=== PATIENT | female | born 1965 | race Hispanic/Latino ===

== ENCOUNTER 2017-07-04 23:30 | Emergency (ER) | payer OTHER, SELFPAY ==
[2017-07-05] MEDS ORDERED: Acetaminophen 500 MG TAB ONE (00:19)
[2017-07-05] MEDS ORDERED: Ondansetron ODT 4 MG TAB ONE (02:23)
[2017-07-05] MEDS ORDERED: HYDROcodone/Acetaminophen 10/325 mg Tablet ONE (02:23)
== END 2017-07-05 02:25 | disposition home or self-care (01) ==
LOC: ERS 23:30
DX: B34.9 Viral infection, unspecified (principal)
CPT/HCPCS: 99283; Q0162

== ENCOUNTER 2018-01-02 13:39 | Emergency (ER) | payer SELFPAY ==
[~2018-01-02 13:39] MED LIST: ISOVUE-370 76%-LOCM 1 ML ONE
[2018-01-02] MEDS ORDERED: Esmolol 100 MG/10 ML VIAL IVP SCH (14:15)
[2018-01-02 14:18] LABS: #Basophils 0.1 thou/uL (0.0-0.2); #Eosinphils 0.1 thou/uL (0.0-0.7); #Lymphocytes 2.7 thou/uL (1.20-3.40); #Monocytes 0.6 thou/uL (0.11-0.59); %Basophils 0.8 % (0.0-1.0); %Eosinophils 0.8 % (0.0-10.0); %Lymphocytes 31.9 % (21.0-51.0); %Neutrophils 59.4 % (42.0-75.0); Hemoglobin 14.3 g/dL (12.0-16.0); Mean Corpuscular Hemoglobin 28.6 pg (27.0-31.0); Mean Corpuscular Volume 84.2 fl (81.0-99.0); Mean Platelet Volume 6.8 fL (7.4-10.4); Platelet Count 305 thou/uL (130-400); RBC Distribution Width 12.3 % (11.5-14.5); Red Blood Cell (RBC) Count 4.99 mill/uL (4.20-5.40); White Blood Cell (WBC) Count 8.5 thou/uL (4.8-10.8)
[2018-01-02 14:28] LABS: PTT 26.6 SEC (22.9-36.1)
[2018-01-02] MEDS ORDERED: Esmolol 2,500 MG/250 ML 250 ML IVPB SCH (14:30)
[2018-01-02 14:42] LABS: ALT (SGPT) 21 U/L (8-55); AST (SGOT) 15 U/L (5-34); Albumin 4.5 g/dL (3.5-5.0); Alkaline Phosphatase 118 U/L (40-150); Anion Gap 11 mmol/L (10-20); BUN (Urea Nitrogen) 17 mg/dL (9.8-20.1); Bilirubin, Total 0.5 mg/dL (0.2-1.2); CK (CPK) 43 U/L (29-168); Calc. Creatinine Clearance 0 mL/min (70-130); Carbon Dioxide 28 mmol/L (22-29); Chloride 104 mmol/L (98-107); Estimated GFR-MDRD 79; Globulin 3.5 g/dL (2.4-3.5); Glucose 142 mg/dL (70-105); Lipase 32 U/L (8-78); Potassium 3.5 mmol/L (3.5-5.1); Sodium 139 mmol/L (136-145)
[2018-01-02 14:45] LABS: CKMB 0.7 ng/mL (0-6.6); Troponin I Less than 0.010 ng/mL (< 0.028)
[2018-01-02] MEDS ORDERED: Metoclopramide HCl 10 MG/2 ML VIAL ONE (15:42)
[2018-01-02] MEDS ORDERED: diphenhydrAMINE 50 MG/ML VIAL ONE (15:42)
[2018-01-02] MEDS ORDERED: Acetaminophen 500 MG TAB ONE (15:42)
--- NOTE | 2018-01-02 15:56 | RAD ---
RADIOGRAPH CHEST 1 VIEW: HISTORY: 52-year-old female with chest pain for two days. FINDINGS: There is no air space density, pulmonary edema, or pneumothorax. The lateral costophrenic angles are sharp. IMPRESSION: No acute pulmonary findings. luis enrique POS: SHIMA
--- NOTE | 2018-01-02 16:18 | CT ---
CT ANGIOGRAM CHEST WITH CONTRAST CT ANGIOGRAM ABDOMEN WITH CONTRAST: History: Chest pain. Comparison: Radiograph same day. FINDINGS: CT angiogram of the chest and abdomen performed after the intravenous administration of contrast. 3D renderings provided. The aorta is without aneurysmal dilatation or dissection. No intralobar hematoma. Visualized portions of the pulmonary arteries are without filling defect. No dilatation. Heart size i s normal. No pericardial effusion. No adenopathy. Celiac trunk is patent. Superior mesentery artery is patent. Both renal arteries are patent. Inferior mesenteric artery is patent. No free fluid in the abdomen. Small fat containing umbilical hernia. No dilated loops of large or small bowel in the upper abdomen. The liver, kidneys, spleen, and pancre as are all unremarkable. Prior cholecystectomy. No spine compression fracture. No displace rib fracture. Lungs are clear. No focal airspace consolidation. IMPRESSION: 1. No aortic dissection, aneurysm dilatation, nor intramural hematoma. No findings to explain patient 's chest pain. 2. 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 3. Small fat containing umbilical hernia. POS: LEEANN
--- NOTE | 2018-01-02 19:36 | CON ---
DATE OF CONSULTATION: 01/02/2018 PRIMARY CARE PHYSICIAN: Clover. REQUESTING PHYSICIAN: Dr. Desai and Dr. Ramirez in the emergency department. REASON FOR CONSULTATION: Elevated blood pressure and chest pain. HISTORY OF PRESENT ILLNESS: Ms. Choe is a 52-year-old female with history of hypert ension and history of medical nonadherence, who presented to the emergency department today for a 48- hour history of intermittent chest pain. She describes it as sharp and stabbing, worse with deep ins piration and movements. She noted that they continued, so she presented to emergency department for evaluation. On arrival, blood pressure was 211/107. Chest pain was again still intermittent. She got 40 mg of i ntravenous esmolol with resolution of her elevated pressure and so the esmolol drip that was ordered was never started. We were subsequently called for admit. She denies any diaphoresis. No nausea, vomiting, diarrhea, constipation. She has had no fevers, chi lls, cough, or sputum production. There has been no GI bleeding. She currently complains only of a headache. Blood pressure has been in the teens to 130s. We discussed options of coming to the hospital for observation overnight for elevated pressure, and I remember they have done this exact same thing back in 06/2016, at which time, she had a negative wor kup, negative stress test, and negative cardiac biomarkers. PAST MEDICAL HISTORY: 1. Hypertension. 2. Medical noncompliance. PAST SURGICAL HISTORY: 1. Cholecystectomy. 2. Bilateral tubal ligation. HOME MEDICATIONS: Lisinopril 2.5 mg p.o. daily. ALLERGIES: NKDA. FAMILY HISTORY: Negative for clotting or bleeding disorder. No immune dysfunction. Some diabetes a nd high blood pressure in other members. SOCIAL HISTORY: Negative for habits x3. REVIEW OF SYSTEMS: A 10-point review of systems was performed and negative for all systems except as stated per HPI. PHYSICAL EXAMINATION: VITAL SIGNS: Temperature is 98.1, pulse 102, blood pressure 211/101, respiratory rate 20, satting 98 % on room air. When I saw her, temperature is 98.4, pulse 71, blood pressure 116/52, respiratory rat e 18, satting 95% on room air. GENERAL: She is awake. She is alert. She is oriented x3. She is a middle-aged fema le, who looks like she does not feel good. She is [place]o speaking only, translated through her daug hter. HEENT: Normocephalic, atraumatic. Pupils equal, round, and reactive to light bilaterally. Mucous m embranes are moist. No visible lesion. No thrush. NECK: Supple without lymphadenopathy, JVD, or thyromegaly. She has normal carotid upstroke. She blood s no bruits. LUNGS: Clear to auscultation bilaterally. There are no wheezes, no rales, no rhonchi. She has good air movement. Symmetric chest excursion. CARDIOVASCULAR: She has a normal S1 and S2. She has normal cardiac with a rate just above 60. She has no audible murmurs. She has no S3 or S4. ABDOMEN: Soft. It is nontender and nondistended. She has good bowel sounds in all 4 quadrants. Sh e has no guarding, no rigidity. EXTREMITIES: No cyanosis, no clubbing. She has got bounding 2+ peripheral pulses in the dorsalis pe dis, posterior tibial, and radial arteries bilaterally. She has no edema. SKIN: Warm, moist, and well perfused. She has no rashes, no lesions. Capillary refill is less than 2 seconds. MUSCULOSKELETAL: Lower extremities are normal to inspection. There is no inflammation. No palpable effusions. NEUROLOGIC: Cranial nerves II-XII are grossly intact. She has normal speech pattern. She has no fo jose a deficits and 5/5 strength in all 4 extremities. LABORATORY DATA: Sodium 139, potassium 4.5, chloride 104, bicarb 28, BUN 63, creatinine 0.76, glucos e of 142, and calcium of 11. Liver function is completely within normal limits. CBC showed a white count of 8.5, hemoglobin is 14.3, hematocrit of 47, and platelet count is 305,000. BNP is normal at 52.8. CK-MB is negative at 0.7. Troponin I is negative at less than 0.010. RADIOGRAPHIC STUDIES: Chest x-ray showed no acute cardiopulmonary disease. CT scan dissection rohit col was negative. She had her last stress test on 06/12/2016, which showed an EF of 78%. She had no reversible ischemia and no scarring. ASSESSMENT AND PLAN: 1. Essential hypertension. The patient is only on 2.5 mg of lisinopril a day, which is largely inef fective. We will transition her over to amlodipine and start her at 5 mg daily. Her blood pressure is currently normal at 116/52. She has had 2 days of intermittent, sharp, and atypical chest pain. She had a completely negative stress test 18 months ago. She had no EKG changes. At this point, I aurelio ulloa let her go home from the emergency department. She has promised to call her primary doctor in t he morning to see him later this week for followup of her blood pressure. I have given her prescript ion for amlodipine 5 mg p.o. daily to start first thing in the morning and I recommended she get a bl ood pressure cuff. 2. Medical nonadherence. Through her daughter, I did addiction treatment counselor regarding need to adhere to her medica tion regimen. Elevated pressures could lead to a catastrophic event such as intracranial bleeding, e tc. 3. Atypical chest pain. I do not think this represents cardiac chest pain.
--- NOTE | 2018-01-08 20:24 | EKG ---
Test Reason : CP Blood Pressure : / mmHG Vent. Rate : 104 BPM Atrial Rate : 104 BPM P-R Int : 204 ms QRS Dur : 066 ms QT Int : 344 ms P-R-T Axes : 041 048 020 degrees QTc Int : 452 ms Sinus tachycardia Otherwise normal ECG Confirmed by LUIS CISNEROS ([id number]), design editor PHUONG BONDS ([id number]) on 01/08/2018 8:23:33 PM Referred By: Confirmed By:LUIS CISNEROS
== END 2018-01-02 18:22 | disposition home or self-care (01) ==
LOC: ERS 13:39
DX: I16.0 Hypertensive urgency (principal); R07.2 Precordial pain; I10 Essential (primary) hypertension
CPT/HCPCS: 71045; 71275; 80053; 82553; 83690; 83880; 84484; 85025; 85610; 85730; 93005; 94760; 96365; 96366; 96375; J1200; J2765

== ENCOUNTER 2023-04-29 18:59 | Inpatient (IN) | payer SELFPAY ==
[~2023-04-29 18:59] MED LIST changes: -ISOVUE-370 76%-LOCM 1 ML ONE; +Iopamidol-370 76% 500 ML MDV (1 ML CHARGE) ONE
[2023-04-29] MEDS ORDERED: Ondansetron PF 4 MG/2 ML Vial ONE (19:24)
[2023-04-29] MEDS ORDERED: Aspirin Chewable 81 MG TAB ONE (19:24)
[2023-04-29] MEDS ORDERED: Morphine 4 MG/ML VIAL ONE (19:24)
[2023-04-29 19:32] LABS: #Basophils 0.1 thou/uL (0.0-0.2); #Monocytes 0.8 thou/uL (0.11-0.59); #Neutrophils 5.4 thou/uL (1.40-6.50); %Basophils 0.5 % (0.0-1.0); %Eosinophils 0.2 % (0.0-10.0); %Lymphocytes 40.5 % (21.0-51.0); %Monocytes 7.1 % (0.0-10.0); %Neutrophils 51.4 % (42.0-75.0); Hematocrit 39.1 % (36.0-47.0); Hemoglobin 13.4 g/dL (12.0-16.0); Mean Corpuscular HGB CONC 34.3 g/dL (32.0-36.0); Mean Corpuscular Hemoglobin 29.1 pg (27.0-31.0); Mean Platelet Volume 9.6 fL (7.4-10.4); Platelet Count 350 10x3/uL (130-400); RBC Distribution Width 12.6 % (11.5-14.5); White Blood Cell (WBC) Count 10.5 10x3/uL (4.8-10.8)
[2023-04-29 19:54] LABS: ALT (SGPT) 18 U/L (8-55); AST (SGOT) 18 U/L (5-34); Albumin 4.7 g/dL (3.5-5.0); Alkaline Phosphatase 95 U/L (40-110); Anion Gap 16 mmol/L (10-20); BUN (Urea Nitrogen) 19 mg/dL (9.8-20.1); Bilirubin, Total 0.4 mg/dL (0.2-1.2); Calc. Creatinine Clearance 0 mL/min (70-130); Calcium 10.9 mg/dL (7.8-10.44); Carbon Dioxide 20 mmol/L (22-29); Chloride 102 mmol/L (98-107); Estimated GFR 68; Globulin 3.4 g/dL (2.4-3.5); Glucose 133 mg/dL (70-105); Potassium 2.8 mmol/L (3.5-5.1); Protein, Total 8.1 g/dL (6.0-8.3); Sodium 135 mmol/L (136-145)
[2023-04-29] MEDS ORDERED: Nitroglycerin 2% Ointment 1 INCH/1 GM Packet ONE (21:36)
[2023-04-29] MEDS ORDERED: Nitroglycerin 0.4 MG TAB (25 Tab Bottle) SL PRN (22:07)
[2023-04-29] MEDS ORDERED: Ondansetron ODT 4 MG TAB PO PRN (22:07)
[2023-04-29] MEDS ORDERED: Morphine 4 MG/ML VIAL SLOW IVP PRN (22:07)
[2023-04-29] MEDS ORDERED: Potassium Chloride 20 MEQ TAB ONE (22:22)
[2023-04-29] MEDS ORDERED: LORazepam 2 MG/ML SYR.(CARPUJECT) ONE (22:22)
[2023-04-29] MEDS ORDERED: Lorazepam 2 MG/ML VIAL SLOW IVP SCH ×2 (23:15→23:45)
[2023-04-29 23:21] LABS: Troponin I 0.014 ng/mL (< 0.028)
[2023-04-29] MEDS ORDERED: Lidocaine 2% Viscous Solution 10 ML, Aluminum & Magnesium Hydroxide 30 ML SSW SCH (23:30)
[2023-04-29] MEDS ORDERED: Mag-Al 1200 mg/1200 mg/30 ML UDCUP PO SCH (23:45)
[2023-04-29 23:54] LABS: Amphetamine Not Detected (NotDetected); Barbiturates Screen Not Detected (NotDetected); Benzodiazepine Screen Not Detected (NotDetected); Cocaine Metabolite Screen Not Detected (NotDetected); Methadone Not Detected (NotDetected); Methamphetamine Not Detected (NotDetected); Opiate Screen Detected (NotDetected); Oxycodone Screen Not Detected (NotDetected); Phencyclidine (PCP) Not Detected (NotDetected); THC/Cannabinoid Screen Not Detected (NotDetected); Tricyclic Screen Not Detected (NotDetected)
[2023-04-30 00:50] LABS: Bacteria/HPF None Seen HPF (None Seen); Bilirubin Negative (Negative); Blood, Urine Negative (Negative); CAUTI Indications for Culture Pelvic or flank pain; Clarity Clear (Clear); Glucose, Urine (Dipstick) Normal (Negative); Ketone, Urine Negative (Negative); Leukocyte 25 Leu/uL (Negative); Nitrite Negative (Negative); Protein, Urine (Dipstick) Negative (Neg-Trace); RBC/HPF 0-3 HPF (0-3); Specific Gravity, Urine 1.013 (1.002-1.036); Squamous Epithelial 0-3 HPF (0-3); Urobilinogen Normal mg/dL (Less than 2); WBC/HPF 0-3 HPF (0-3)
[2023-04-30 00:52] LABS: Urine Culture Reflex No No
[2023-04-30] MEDS ORDERED: Mag-Al 1200 mg/1200 mg/30 ML UDCUP PO SCH (01:30)
[2023-04-30] MEDS: Ondansetron PF 4 MG/2 ML Vial IVP PRN ×2 (01:57→19:10)
[2023-04-30 04:31] LABS: #Monocytes 0.5 thou/uL (0.11-0.59); #Neutrophils 3.3 thou/uL (1.40-6.50); %Basophils 0.3 % (0.0-1.0); %Eosinophils 0.2 % (0.0-10.0); %Lymphocytes 34.2 % (21.0-51.0); %Monocytes 8.1 % (0.0-10.0); %Neutrophils 56.7 % (42.0-75.0); Hematocrit 34.4 % (36.0-47.0); Hemoglobin 11.4 g/dL (12.0-16.0); Mean Corpuscular HGB CONC 33.1 g/dL (32.0-36.0); Mean Corpuscular Hemoglobin 28.8 pg (27.0-31.0); Mean Corpuscular Volume 86.9 fl (78.0-98.0); Mean Platelet Volume 9.8 fL (7.4-10.4); Platelet Count 273 10x3/uL (130-400); RBC Distribution Width 12.7 % (11.5-14.5); Red Blood Cell (RBC) Count 3.96 mill/uL (4.20-5.40); White Blood Cell (WBC) Count 5.9 10x3/uL (4.8-10.8)
[2023-04-30 05:04] LABS: Troponin I Less than 0.010 ng/mL (< 0.028)
[2023-04-30 05:25] LABS: Anion Gap 11 mmol/L (10-20); BUN (Urea Nitrogen) 12 mg/dL (9.8-20.1); Calc. Creatinine Clearance 98 mL/min (70-130); Carbon Dioxide 22 mmol/L (22-29); Cardiac Risk 6.5 (Less than 4.5); Chloride 111 mmol/L (98-107); Cholesterol 209 mg/dl (< 200 Desired); Estimated GFR 95; Glucose 101 mg/dL (70-105); HDL Cholesterol 32 mg/dL (>60 Neg Risk); LDL Cholesterol, Calculated 154 mg/dL; Potassium 4.4 mmol/L (3.5-5.1); Sodium 140 mmol/L (136-145); Triglycerides 114 mg/dL (Less than 150)
[2023-04-30 05:40] LABS: Magnesium 2.2 mg/dL (1.6-2.6)
[2023-04-30] MEDS: Aspirin Chewable 81 MG TAB PO SCH (09:56)
[2023-04-30] MEDS: Acetaminophen 325 MG TAB PO PRN (09:56)
[2023-04-30] MEDS: Sodium Chloride 0.9% 1,000 ML IV SCH (15:20)
[2023-04-30] MEDS: Atorvastatin Calcium 40 MG TAB PO SCH (21:17)
[2023-05-01 05:08] LABS: #Eosinphils 0.1 thou/uL (0.0-0.7); #Monocytes 0.4 thou/uL (0.11-0.59); #Neutrophils 2.8 thou/uL (1.40-6.50); %Basophils 0.5 % (0.0-1.0); %Eosinophils 1.3 % (0.0-10.0); %Lymphocytes 39.1 % (21.0-51.0); %Monocytes 7.7 % (0.0-10.0); %Neutrophils 51.4 % (42.0-75.0); Hematocrit 36.4 % (36.0-47.0); Hemoglobin 11.7 g/dL (12.0-16.0); Mean Corpuscular HGB CONC 32.1 g/dL (32.0-36.0); Mean Platelet Volume 9.8 fL (7.4-10.4); Platelet Count 243 10x3/uL (130-400); RBC Distribution Width 12.9 % (11.5-14.5); Red Blood Cell (RBC) Count 4.03 mill/uL (4.20-5.40); White Blood Cell (WBC) Count 5.5 10x3/uL (4.8-10.8)
[2023-05-01] MEDS: Sodium Chloride 0.9% 1,000 ML IV SCH (05:41)
[2023-05-01 05:50] LABS: Mean Corpuscular Volume 90.3 fl (78.0-98.0)
[2023-05-01 05:56] LABS: Anion Gap 10 mmol/L (10-20); BUN (Urea Nitrogen) 11 mg/dL (9.8-20.1); Calc. Creatinine Clearance 97 mL/min (70-130); Calcium 10.1 mg/dL (7.8-10.44); Carbon Dioxide 23 mmol/L (22-29); Chloride 110 mmol/L (98-107); Estimated GFR 93; Glucose 91 mg/dL (70-105); Potassium 4.2 mmol/L (3.5-5.1); Sodium 139 mmol/L (136-145)
[2023-05-01] MEDS ORDERED: ADENOSINE 60 MG/20 ML SDV ONE (09:38)
[2023-05-01] MEDS: Lisinopril 10 MG TAB PO SCH (12:03)
[2023-05-01] MEDS: Aspirin Chewable 81 MG TAB PO SCH (12:03)
[2023-05-01] MEDS ORDERED: Amlodipine 5 MG TAB PO SCH (14:45)
[2023-05-01] MEDS: Acetaminophen 325 MG TAB PO PRN (16:02)
[2023-05-01] MEDS ORDERED: Communication Order-Pharmacy FS SCH (17:00)
[2023-05-01] MEDS: Atorvastatin Calcium 40 MG TAB PO SCH (21:02)
[2023-05-02 04:23] LABS: #Eosinphils 0.1 thou/uL (0.0-0.7); #Monocytes 0.5 thou/uL (0.11-0.59); #Neutrophils 3.3 thou/uL (1.40-6.50); %Basophils 0.5 % (0.0-1.0); %Eosinophils 1.4 % (0.0-10.0); %Monocytes 7.6 % (0.0-10.0); %Neutrophils 56.2 % (42.0-75.0); Hematocrit 38.1 % (36.0-47.0); Hemoglobin 12.4 g/dL (12.0-16.0); Mean Corpuscular HGB CONC 32.5 g/dL (32.0-36.0); Mean Platelet Volume 9.5 fL (7.4-10.4); Platelet Count 246 10x3/uL (130-400); RBC Distribution Width 12.7 % (11.5-14.5); Red Blood Cell (RBC) Count 4.28 mill/uL (4.20-5.40); White Blood Cell (WBC) Count 5.9 10x3/uL (4.8-10.8)
[2023-05-02 04:48] LABS: Anion Gap 9 mmol/L (10-20); BUN (Urea Nitrogen) 9 mg/dL (9.8-20.1); Calc. Creatinine Clearance 98 mL/min (70-130); Calcium 10.2 mg/dL (7.8-10.44); Carbon Dioxide 27 mmol/L (22-29); Chloride 109 mmol/L (98-107); Estimated GFR 95; Glucose 103 mg/dL (70-105); Sodium 141 mmol/L (136-145)
[2023-05-02] MEDS ORDERED: Amlodipine 5 MG TAB PO SCH (09:00)
[2023-05-02] MEDS: Lisinopril 10 MG TAB PO SCH (10:20)
[2023-05-02] MEDS: Amlodipine 5 MG TAB PO SCH (10:20)
[2023-05-02] MEDS: Aspirin Chewable 81 MG TAB PO SCH (10:20)
[2023-05-02] MEDS: Ondansetron PF 4 MG/2 ML Vial IVP PRN (14:45)
[2023-05-02] MEDS: Atorvastatin Calcium 40 MG TAB PO SCH (20:06)
[2023-05-03 05:02] LABS: #Eosinphils 0.1 thou/uL (0.0-0.7); #Monocytes 0.6 thou/uL (0.11-0.59); #Neutrophils 5.1 thou/uL (1.40-6.50); %Basophils 0.4 % (0.0-1.0); %Eosinophils 0.8 % (0.0-10.0); %Lymphocytes 23.5 % (21.0-51.0); %Monocytes 7.6 % (0.0-10.0); %Neutrophils 67.6 % (42.0-75.0); Hematocrit 39.2 % (36.0-47.0); Hemoglobin 12.9 g/dL (12.0-16.0); Mean Corpuscular HGB CONC 32.9 g/dL (32.0-36.0); Mean Corpuscular Hemoglobin 29.3 pg (27.0-31.0); Mean Corpuscular Volume 88.9 fl (78.0-98.0); Mean Platelet Volume 9.6 fL (7.4-10.4); Platelet Count 261 10x3/uL (130-400); RBC Distribution Width 12.5 % (11.5-14.5); Red Blood Cell (RBC) Count 4.41 mill/uL (4.20-5.40); White Blood Cell (WBC) Count 7.5 10x3/uL (4.8-10.8)
[2023-05-03 05:23] LABS: Anion Gap 11 mmol/L (10-20); BUN (Urea Nitrogen) 16 mg/dL (9.8-20.1); Calc. Creatinine Clearance 85 mL/min (70-130); Calcium 10.4 mg/dL (7.8-10.44); Carbon Dioxide 26 mmol/L (22-29); Chloride 105 mmol/L (98-107); Estimated GFR 80; Glucose 101 mg/dL (70-105); Potassium 4.2 mmol/L (3.5-5.1); Sodium 138 mmol/L (136-145)
[2023-05-03] MEDS ORDERED: Sodium Chloride 0.9% 1,000 ML IV SCH ×2 (06:00→09:57)
[2023-05-03] MEDS ORDERED: Lidocaine 1% (PF) 30 ML VIAL ONE (08:27)
[2023-05-03] MEDS ORDERED: Heparin 10,000 UNITS/ 10 ML VIAL ONE (08:27)
[2023-05-03] MEDS ORDERED: fentaNYL 50 mcg/mL 1 mL Vial ONE (08:43)
[2023-05-03] MEDS ORDERED: Midazolam HCl 2 mg/2 ml Vial ONE (08:43)
[2023-05-03] MEDS ORDERED: Protamine Sulfate 50 MG/5 ML VIAL ONE (09:39)
[2023-05-03] MEDS ORDERED: Acetaminophen/Codeine 30-300mg Tablet PO PRN ×2 (09:56)
[2023-05-03] MEDS ORDERED: Nitroglycerin 0.4 MG TAB (25 Tab Bottle) SL PRN (09:56)
[2023-05-03] MEDS ORDERED: Sodium Chloride 0.9% 200 ML IV PRN (09:56)
[2023-05-03] MEDS ORDERED: Iopamidol 370 76% 100 ML VIAL ONE (10:19)
[2023-05-03] MEDS ORDERED: ALPRAZolam 0.25 MG TAB PO PRN (10:49)
[2023-05-03] MEDS ORDERED: Diazepam 5 MG TAB PO PRN (10:51)
[2023-05-03] MEDS ORDERED: Communication Order-Pharmacy FS PRN (10:51)
[2023-05-03] MEDS: Amlodipine 5 MG TAB PO SCH (11:28)
[2023-05-03] MEDS: Acetaminophen 325 MG TAB PO PRN (11:29)
[2023-05-03] MEDS: Aspirin Chewable 81 MG TAB PO SCH (11:30)
[2023-05-03] MEDS: Lisinopril 10 MG TAB PO SCH (11:30)
[2023-05-03 12:18] LABS: Hemoglobin A1c 5.6 % (4.0-6.0)
[2023-05-03] MEDS: Atorvastatin Calcium 40 MG TAB PO SCH (22:10)
[2023-05-04] MEDS: Lisinopril 10 MG TAB PO SCH (04:54)
[2023-05-04] MEDS ORDERED: Dexamethasone 4 mg/ml Vial ONE (06:18)
[2023-05-04] MEDS ORDERED: Albumin 5% 500 ML ONE (06:19)
[2023-05-04] MEDS ORDERED: Bupivacaine HCl 0.5%/Epinephrine 1:200,000/PF 30 ml Vial ONE (06:19)
[2023-05-04] MEDS ORDERED: Lidocaine 1% MPF 2 ML VIAL ONE (06:36)
[2023-05-04] MEDS ORDERED: niCARdipine 25 MG/10 ML SDV ONE (06:54)
[2023-05-04] MEDS ORDERED: Rocuronium Bromide 50 MG/5 ML VIAL ONE (06:54)
[2023-05-04] MEDS ORDERED: Insulin Regular 300 UNITS/3 ML VIAL ONE (06:54)
[2023-05-04] MEDS ORDERED: Fentanyl 250 MCG/5 ML VIAL ONE (06:54)
[2023-05-04] MEDS ORDERED: Aminocaproic Acid 5 GM/20 ML VIAL ONE ×2 (06:54→07:44)
[2023-05-04] MEDS ORDERED: Vasopressin 20 UNITS/ML VIAL ONE (06:54)
[2023-05-04] MEDS ORDERED: Norepinephrine 4 MG/4 ML VIAL ONE (06:54)
[2023-05-04] MEDS ORDERED: Midazolam HCl 2 mg/2 ml Vial ONE (06:54)
[2023-05-04] MEDS ORDERED: Heparin 10,000 UNITS/1 ML VIAL 30,000 UNITS in Sodium Chloride 0.9% 1,000 ML FS SCH (07:00)
[2023-05-04] MEDS ORDERED: CEFAZOLIN 2 GM in Sodium Chloride 0.9% 100 ML IVPB SCH (07:30)
[2023-05-04] MEDS ORDERED: Vancomycin 1 GM VIAL ONE (07:44)
[2023-05-04] MEDS ORDERED: Cardioplegic Soln 1,000 ML BAG ONE (07:44)
[2023-05-04] MEDS ORDERED: Heparin 5,000 UNITS/ML VIAL ONE (07:44)
[2023-05-04] MEDS ORDERED: PROPOFOL 200 MG/20 ML VIAL ONE (07:44)
[2023-05-04] MEDS ORDERED: PHENYLEPHRINE-NS 100 MCG/ML 10 ML SYRINGE ONE (07:44)
[2023-05-04] MEDS ORDERED: Esmolol 100 MG/10 ML VIAL ONE (07:44)
[2023-05-04] MEDS ORDERED: Rocuronium Bromide 10 MG/ML (10ML VIAL) ONE (07:44)
[2023-05-04] MEDS ORDERED: Papaverine 60 MG/2 ML VIAL ONE (07:44)
[2023-05-04] MEDS ORDERED: Sodium Bicarb 50 MEQ/50 ML VIAL ONE (07:44)
[2023-05-04] MEDS ORDERED: Heparin 30,000 units/30 ml VIAL ONE (07:44)
[2023-05-04] MEDS ORDERED: Calcium Chloride 1 GM/10 ML Abboject SYRINGE ONE (07:44)
[2023-05-04] MEDS ORDERED: Mannitol 12.5 GM/50 ML ONE (07:44)
[2023-05-04] MEDS ORDERED: Potassium Chloride 60 MEQ/30 ML VIAL ONE (07:44)
[2023-05-04] MEDS ORDERED: Lidocaine 2% PF 100 mg/5 ml Syringe ONE (07:44)
[2023-05-04] MEDS ORDERED: Lidocaine 1% PF 5 ML VIAL ONE (07:44)
[2023-05-04] MEDS ORDERED: ePHEDrine Sulfate 50 MG/10 ML VIAL ONE (07:44)
[2023-05-04] MEDS ORDERED: Magnesium 5 GM/10 ML VIAL ONE (07:44)
[2023-05-04] MEDS ORDERED: Thrombin 5000 UNITS/5 ML VIAL ONE (07:44)
[2023-05-04] MEDS ORDERED: Protamine Sulfate 250 MG/25 ML VIAL ONE (07:44)
[2023-05-04] MEDS ORDERED: Guaifenesin DM 100-10/5 ML UDCUP PO PRN (11:35)
[2023-05-04] MEDS ORDERED: Potassium Chloride 20 MEQ/100 ML PREMIX BAG IVPB PRN (11:35)
[2023-05-04] MEDS ORDERED: hydrALAZINE 20 MG/ML VIAL SLOW IVP PRN (11:35)
[2023-05-04] MEDS ORDERED: Bisacodyl 10 MG SUPP PR PRN (11:35)
[2023-05-04] MEDS ORDERED: Mag-Al 1200 mg/1200 mg/30 ML UDCUP PO PRN (11:35)
[2023-05-04] MEDS ORDERED: D5 1/2 NS w/20 mEq KCL 1,000 ML IV SCH (11:35)
[2023-05-04] MEDS ORDERED: NOREPINEPHRINE 8 MG/250 ML-D5W 250 ML IVPB PRN (11:35)
[2023-05-04] MEDS ORDERED: fentaNYL 50 mcg/mL 1 mL Vial SLOW IVP PRN (11:35)
[2023-05-04] MEDS ORDERED: Morphine 2 MG/ML VIAL SLOW IVP PRN (11:35)
[2023-05-04] MEDS ORDERED: Hetastarch 6% 500 ML 500 ML IVPB PRN (11:35)
[2023-05-04] MEDS ORDERED: Acetaminophen 325 MG TAB PO PRN (11:35)
[2023-05-04] MEDS ORDERED: Nitroglycerin 50 MG/250 ML BOT 250 ML IVPB PRN (11:35)
[2023-05-04] MEDS ORDERED: Ipratropium/Albuterol 3 ML NEB NEB PRN (11:35)
[2023-05-04 11:47] LABS: #Monocytes 0.7 thou/uL (0.11-0.59); #Neutrophils 15.3 thou/uL (1.40-6.50); %Basophils 0.1 % (0.0-1.0); %Eosinophils 0.1 % (0.0-10.0); %Lymphocytes 7.1 % (21.0-51.0); %Monocytes 4.2 % (0.0-10.0); %Neutrophils 87.6 % (42.0-75.0); Hemoglobin 10.6 g/dL (12.0-16.0); Mean Corpuscular HGB CONC 32.1 g/dL (32.0-36.0); Mean Corpuscular Hemoglobin 28.8 pg (27.0-31.0); Mean Corpuscular Volume 89.7 fl (78.0-98.0); Mean Platelet Volume 9.9 fL (7.4-10.4); Platelet Count 194 10x3/uL (130-400); RBC Distribution Width 12.7 % (11.5-14.5); Red Blood Cell (RBC) Count 3.68 mill/uL (4.20-5.40); White Blood Cell (WBC) Count 17.4 10x3/uL (4.8-10.8)
[2023-05-04 12:00] LABS: Actual Bicarbonate (HCO3a) 20.3 mEq/L (22-28); Base Excess (BEa) -3.9 mEq/L (-2.0 to +3.0); Calcium, Ionized (arterial) 1.24 mmol/L (1.12-1.30); Carboxyhemoglobin (COHb) 0.3 gm% (0.0-3.0); Hematocrit-ABG 35 % (36.0-47.0); Hemoglobin (Hb) 11.9 g/dL (12.0-16.0); O2 Tension (PaO2), arterial 117.9 mmHg (80.0-100.0); Potassium - ABG Lab 4.09 mmol/L (3.70-5.30); pH, Arterial 7.394 (7.35-7.45)
[2023-05-04] MEDS ORDERED: Magnesium 2 GM/50 ML(in water) 2 GM in Premix Bag 1 BAG IVPB SCH (12:00)
[2023-05-04 12:04] LABS: INR-International Normal Ratio 1.4; Prothrombin Time 17.7 sec (12.0-14.7)
[2023-05-04 12:05] LABS: PTT 30.4 sec (22.9-36.1)
[2023-05-04] MEDS ORDERED: Glucagon 1 MG/ML KIT SC PRN (12:15)
[2023-05-04] MEDS ORDERED: Dextrose 50% Abboject 50 ML SYRINGE SLOW IVP PRN (12:15)
[2023-05-04] MEDS ORDERED: Dextrose 5% in Water 1,000 ML IV PRN (12:15)
[2023-05-04] MEDS: Insulin Regular 300 UNITS/3 ML VIAL SC PRN ×2 (12:20→16:11)
[2023-05-04] MEDS: Ketorolac Tromethamine 30 MG/ML VIAL IVP SCH ×3 (12:20→22:59)
[2023-05-04] MEDS: Ondansetron PF 4 MG/2 ML Vial IVP PRN (12:20)
[2023-05-04 12:30] LABS: Anion Gap 13 mmol/L (10-20); BUN (Urea Nitrogen) 6 mg/dL (9.8-20.1); Calc. Creatinine Clearance 110 mL/min (70-130); Calcium 8.7 mg/dL (7.8-10.44); Carbon Dioxide 18 mmol/L (22-29); Chloride 114 mmol/L (98-107); Estimated GFR 101; Glucose 207 mg/dL (70-105); Potassium 4.7 mmol/L (3.5-5.1); Sodium 140 mmol/L (136-145)
[2023-05-04 12:44] LABS: Puncture Site ALINE
[2023-05-04] MEDS: CEFAZOLIN 2 GM in Sodium Chloride 0.9% 100 ML IVPB SCH ×2 (13:50→22:56)
[2023-05-04 13:52] LABS: Actual Bicarbonate (HCO3a) 18.6 mEq/L (22-28); Base Excess (BEa) -3.5 mEq/L (-2.0 to +3.0); CO2 Tension 25.9 mmHg (35.0-45.0); Calcium, Ionized (arterial) 1.21 mmol/L (1.12-1.30); Carboxyhemoglobin (COHb) 0.1 gm% (0.0-3.0); Hematocrit-ABG 37 % (36.0-47.0); Hemoglobin (Hb) 12.6 g/dL (12.0-16.0); O2 Tension (PaO2), arterial 159.7 mmHg (80.0-100.0); Potassium - ABG Lab 3.84 mmol/L (3.70-5.30); pH, Arterial 7.474 (7.35-7.45)
[2023-05-04 13:53] LABS: ALV-art Gradient 93.125 mmHg (0-20); Puncture Site ALINE
[2023-05-04] MEDS: fentaNYL 50 mcg/mL 1 mL Vial SLOW IVP PRN ×2 (14:52→18:40)
[2023-05-04 17:29] LABS: Hematocrit 31.9 % (36.0-47.0); Hemoglobin 10.5 g/dL (12.0-16.0)
[2023-05-04 17:56] LABS: Potassium 4.3 mmol/L (3.5-5.1)
[2023-05-04] MEDS: Atorvastatin Calcium 40 MG TAB PO SCH (20:19)
[2023-05-04] MEDS ORDERED: Famotidine/PF 20 mg/2ml Vial SLOW IVP SCH (21:00)
[2023-05-05] MEDS: traMADol HCl 50 MG TAB PO PRN ×2 (00:51→11:43)
[2023-05-05 04:19] LABS: #Monocytes 0.9 thou/uL (0.11-0.59); #Neutrophils 9.4 thou/uL (1.40-6.50); %Basophils 0.1 % (0.0-1.0); %Lymphocytes 8.9 % (21.0-51.0); %Monocytes 8.1 % (0.0-10.0); %Neutrophils 82.6 % (42.0-75.0); Hematocrit 27.4 % (36.0-47.0); Hemoglobin 8.9 g/dL (12.0-16.0); Mean Corpuscular HGB CONC 32.5 g/dL (32.0-36.0); Mean Corpuscular Hemoglobin 29.2 pg (27.0-31.0); Mean Corpuscular Volume 89.8 fl (78.0-98.0); Mean Platelet Volume 10.3 fL (7.4-10.4); Platelet Count 185 10x3/uL (130-400); RBC Distribution Width 13.1 % (11.5-14.5); Red Blood Cell (RBC) Count 3.05 mill/uL (4.20-5.40); White Blood Cell (WBC) Count 11.4 10x3/uL (4.8-10.8)
[2023-05-05 04:43] LABS: Anion Gap 9 mmol/L (10-20); BUN (Urea Nitrogen) 7 mg/dL (9.8-20.1); Calc. Creatinine Clearance 105 mL/min (70-130); Calcium 9.2 mg/dL (7.8-10.44); Carbon Dioxide 25 mmol/L (22-29); Chloride 111 mmol/L (98-107); Estimated GFR 100; Glucose 103 mg/dL (70-105); Potassium 4.4 mmol/L (3.5-5.1); Sodium 141 mmol/L (136-145)
[2023-05-05] MEDS: Ketorolac Tromethamine 30 MG/ML VIAL IVP SCH ×3 (05:09→20:06)
[2023-05-05] MEDS: CEFAZOLIN 2 GM in Sodium Chloride 0.9% 100 ML IVPB SCH (05:10)
[2023-05-05] MEDS: Ondansetron PF 4 MG/2 ML Vial IVP PRN ×2 (06:05→20:07)
[2023-05-05] MEDS: Magnesium 2 GM/50 ML(in water) 2 GM in Premix Bag 1 BAG IVPB SCH (09:56)
[2023-05-05] MEDS: Aspirin 325 MG TAB PO SCH (09:56)
[2023-05-05] MEDS ORDERED: Insulin Glargine 30 UNITS/0.3 ML VIAL SC PRN (12:15)
[2023-05-05] MEDS: fentaNYL 50 mcg/mL 1 mL Vial SLOW IVP PRN (16:21)
[2023-05-05] MEDS: Bisacodyl 5 MG TAB PO PRN (20:07)
[2023-05-05] MEDS: Atorvastatin Calcium 40 MG TAB PO SCH (20:07)
[2023-05-06] MEDS: Ketorolac Tromethamine 30 MG/ML VIAL IVP SCH ×4 (00:14→17:54)
[2023-05-06] MEDS: Magnesium 2 GM/50 ML(in water) 2 GM in Premix Bag 1 BAG IVPB SCH (08:03)
[2023-05-06] MEDS: traMADol HCl 50 MG TAB PO PRN ×2 (08:04→15:40)
[2023-05-06] MEDS: Aspirin 325 MG TAB PO SCH (08:04)
[2023-05-06] MEDS: Atorvastatin Calcium 40 MG TAB PO SCH (20:56)
[2023-05-07] MEDS: Ketorolac Tromethamine 30 MG/ML VIAL IVP SCH ×3 (00:08→11:55)
[2023-05-07] MEDS: traMADol HCl 50 MG TAB PO PRN ×3 (02:25→20:25)
[2023-05-07 06:13] VITALS: BMI 26.7
[2023-05-07] MEDS: Aspirin 325 MG TAB PO SCH (08:40)
[2023-05-07] MEDS: Metoprolol Tartrate 25 MG TAB PO SCH ×2 (08:40→20:24)
[2023-05-07] MEDS ORDERED: traMADol HCl 50 MG TAB PO PRN (09:00)
[2023-05-07] MEDS: Atorvastatin Calcium 40 MG TAB PO SCH (20:25)
[2023-05-08] MEDS: traMADol HCl 50 MG TAB PO PRN (05:01)
[2023-05-08] MEDS: Metoprolol Tartrate 25 MG TAB PO SCH ×2 (08:32→21:00)
[2023-05-08] MEDS: Aspirin 325 MG TAB PO SCH (08:32)
[2023-05-08 11:13] LABS: #Eosinphils 0.1 thou/uL (0.0-0.7); #Monocytes 0.6 thou/uL (0.11-0.59); #Neutrophils 4.7 thou/uL (1.40-6.50); %Basophils 0.1 % (0.0-1.0); %Eosinophils 1.9 % (0.0-10.0); %Lymphocytes 20.9 % (21.0-51.0); %Monocytes 8.6 % (0.0-10.0); %Neutrophils 67.9 % (42.0-75.0); Hematocrit 29.3 % (36.0-47.0); Hemoglobin 9.3 g/dL (12.0-16.0); Mean Corpuscular HGB CONC 31.7 g/dL (32.0-36.0); Mean Corpuscular Volume 91.3 fl (78.0-98.0); Mean Platelet Volume 10.1 fL (7.4-10.4); Platelet Count 254 10x3/uL (130-400); RBC Distribution Width 12.6 % (11.5-14.5); Red Blood Cell (RBC) Count 3.21 mill/uL (4.20-5.40)
[2023-05-08] MEDS: HYDROcodone/Acetaminophen 5/325 mg Tablet PO PRN (11:15)
[2023-05-08] MEDS: Bisacodyl 5 MG TAB PO PRN (11:18)
[2023-05-08 11:22] LABS: Anion Gap 12 mmol/L (10-20); BUN (Urea Nitrogen) 17 mg/dL (9.8-20.1); Calc. Creatinine Clearance 100 mL/min (70-130); Calcium 10.4 mg/dL (7.8-10.44); Carbon Dioxide 26 mmol/L (22-29); Chloride 104 mmol/L (98-107); Estimated GFR 93; Glucose 103 mg/dL (70-105); Potassium 4.1 mmol/L (3.5-5.1); Sodium 138 mmol/L (136-145)
[2023-05-08] MEDS: Atorvastatin Calcium 40 MG TAB PO SCH (21:00)
[2023-05-09] MEDS: Aspirin 325 MG TAB PO SCH (08:49)
[2023-05-09] MEDS: Metoprolol Tartrate 25 MG TAB PO SCH ×2 (08:49→19:54)
[2023-05-09] MEDS: HYDROcodone/Acetaminophen 5/325 mg Tablet PO PRN ×2 (09:42→19:54)
[2023-05-09] MEDS ORDERED: Bisacodyl 10 MG SUPP PR STA (10:26)
[2023-05-09] MEDS: Atorvastatin Calcium 40 MG TAB PO SCH (19:54)
[2023-05-09] MEDS: Senokot S 8.6-50 MG TAB PO SCH (19:54)
[2023-05-10] MEDS ORDERED: Polyethylene Glycol 3350 17 GM Packet PO SCH (09:00)
[2023-05-10 09:07] VITALS: TEMP 98
[2023-05-10] MEDS: HYDROcodone/Acetaminophen 5/325 mg Tablet PO PRN (09:08)
[2023-05-10] MEDS: Aspirin 325 MG TAB PO SCH (09:09)
[2023-05-10] MEDS: Senokot S 8.6-50 MG TAB PO SCH (09:09)
[2023-05-10] MEDS: Metoprolol Tartrate 25 MG TAB PO SCH (09:09)
[2023-05-10 13:01] VITALS: BP 109/58
== END 2023-05-10 13:30 | disposition home or self-care (01) | DRG 234 ==
LOC: ERS 18:59 → 2SE 21:58 → OBSVTOIN 04-30 16:28 → CCU 05-04 07:22 → 2NO 05-07 16:00
PROVIDERS: ADMIT Internal Medicine; ATTEND Internal Medicine
PROC: 4A023N7 Measurement of Cardiac Sampling and Pressure, Left Heart, Percutaneous Approach (ICD-10-PCS; 2023-05-03)
PROC: B2151ZZ Fluoroscopy of Left Heart using Low Osmolar Contrast (ICD-10-PCS; 2023-05-03)
PROC: B2111ZZ Fluoroscopy of Multiple Coronary Arteries using Low Osmolar Contrast (ICD-10-PCS; 2023-05-03)
PROC: 02100Z9 Bypass Coronary Artery, One Artery from Left Internal Mammary, Open Approach (ICD-10-PCS; principal; 2023-05-04)
PROC: 021109W Bypass Coronary Artery, Two Arteries from Aorta with Autologous Venous Tissue, Open Approach (ICD-10-PCS; 2023-05-04)
PROC: 06BQ4ZZ Excision of Left Saphenous Vein, Percutaneous Endoscopic Approach (ICD-10-PCS; 2023-05-04)
PROC: 5A1221Z Performance of Cardiac Output, Continuous (ICD-10-PCS; 2023-05-04)
PROC: 02L70CK Occlusion of Left Atrial Appendage with Extraluminal Device, Open Approach (ICD-10-PCS; 2023-05-04)
PROC: 3E033XZ Introduction of Vasopressor into Peripheral Vein, Percutaneous Approach (ICD-10-PCS; 2023-05-04)
PROC: 30233J1 Transfusion of Nonautologous Serum Albumin into Peripheral Vein, Percutaneous Approach (ICD-10-PCS; 2023-05-04)
PROC: 4A133R1 Monitoring of Arterial Saturation, Peripheral, Percutaneous Approach (ICD-10-PCS; 2023-05-04)
DX: I25.110 Atherosclerotic heart disease of native coronary artery with unstable angina pectoris (principal); I10 Essential (primary) hypertension; E87.6 Hypokalemia; F43.21 Adjustment disorder with depressed mood; R00.0 Tachycardia, unspecified; R07.89 Other chest pain; E78.00 Pure hypercholesterolemia, unspecified; K59.00 Constipation, unspecified; Z90.49 Acquired absence of other specified parts of digestive tract; Z98.51 Tubal ligation status; Z63.4 Disappearance and death of family member
CPT/HCPCS: 36415; 36416; 36430; 71045; 71275; 78452; 80048; 80053; 80061; 80306; 81001; 82805; 83036; 83735; 83880; 84443; 84484; 85025; 85347; 85610; 85730; 86850; 86900; 86901; 93005; 93010; 93017; 93306; 93458; 93798; 94002; 94150; 94760; 96361; 96374; 96375; 96376; 97139; 99152; 99153; A9500; C1751; C1769; G0378; J0153; J1100; J1642; J1644; J1815; J1885; J2001; J2060; J2150; J2250; J2270; J2272; J2405; J2440; J2704; J2720; J3010; J3370; J3475; J3480; J3490; J7050; P9045; Q9967; S0017; S0028